=== PATIENT | male | born 1955 | race Native Hawaiian/Other Pacific Islander ===

== ENCOUNTER 2020-09-06 13:17 | Outpatient (CLI) | payer BC, OTHER | END 2020-09-06 21:38 | disposition home or self-care (01) | LOC: INF 13:17 | PROVIDERS: ATTEND Internal Medicine Endocrinology, Diabetes & Metabolism | DX: Z23 Encounter for immunization (principal) | CPT/HCPCS: 96372 ==

== ENCOUNTER 2020-10-04 10:59 | Outpatient (CLI) | payer BC, OTHER | END 2020-10-04 19:52 | disposition home or self-care (01) | LOC: INF 10:59 | PROVIDERS: ATTEND Internal Medicine Endocrinology, Diabetes & Metabolism | DX: Z23 Encounter for immunization (principal) | CPT/HCPCS: 96372 ==